=== PATIENT | female | born 1950 | race Caucasian/White ===

== ENCOUNTER 2021-12-07 10:59 | Emergency (ER) | payer MEDICARE, MEDICAID ==
[~2021-12-07] VITALS: Ht 165.1 cm; Wt 90.9 kg
[~2021-12-07 10:59] MED LIST: DIPH-423 PO; DIPH25CA83 PO; PRED50TA PO
[2021-12-07 11:22] VITALS: BP 156/78
[2021-12-07] MEDS ORDERED: ibuprofen tablet 400 MG TABLET PO ONE (12:20)
[2021-12-07] MEDS ORDERED: HYDROcodone/acetaminophen 5mg/325mg tablet PO ONE (12:20)
[2021-12-07] MEDS ORDERED: HYDR-3964 PO (13:06)
== END 2021-12-07 14:01 | disposition home or self-care (01) ==
LOC: ER 11:00
DX: S20.211A Contusion of right front wall of thorax, initial encounter (principal); R05.3 Chronic cough; E78.00 Pure hypercholesterolemia, unspecified; I10 Essential (primary) hypertension; G89.29 Other chronic pain; Z90.710 Acquired absence of both cervix and uterus; Z88.8 Allergy status to other drugs, medicaments and biological substances; Z79.899 Other long term (current) drug therapy; W19.XXXA Unspecified fall, initial encounter; Y93.01 Activity, walking, marching and hiking; Y92.098 Other place in other non-institutional residence as the place of occurrence of the external cause; Y99.8 Other external cause status
CPT/HCPCS: 71045; 93005; 99283